=== PATIENT | male | born 1935 ===

== ENCOUNTER → 2018-07-29 | Outpatient (CLI) | payer MEDICARE | END | disposition home or self-care (01) | LOC: LAB SHORT 19:38 → LAB 19:38 | DX: R21 Rash and other nonspecific skin eruption (principal); L40.0 Psoriasis vulgaris; L81.4 Other melanin hyperpigmentation; Z79.899 Other long term (current) drug therapy | CPT/HCPCS: 87070 ==

== ENCOUNTER 2021-09-11 17:41 | Inpatient (IN) | payer MEDICARE, OTHER ==
[~2021-09-11] VITALS: Ht 170.2 cm; Wt 78.5 kg
[2021-09-11 19:19] LABS: Hematocrit 25.6 % (37.0-53.0); Hemoglobin 8.6 g/dL (13.5-17.5); Mean Corpuscular HGB Conc 33.6 g/dL (31.5-36.5); Mean Corpuscular Volume 95 fL (80-100); Mean Platelet Volume 10.7 fL (9.1-12.4); Platelet Count 209 K/mm3 (150-400); RDW Coefficient Variation 13.9 % (11.7-14.2); RDW Standard Deviation 48.7 fL (35.1-46.3); Red Blood Cell Count 2.69 M/mm3 (4.30-5.90); White Blood Cell Count 13.12 K/mm3 (4.00-11.30)
--- NOTE | 2021-09-11 19:24 | NUR ---
PCU ADMIT DIRECT ADMIT FROM [facility], BROUGHT TO PCU-20 BY EMS VIA [facility] @ APPROX 1800. PT SLID OVER FROM RNEY TO PCU BED. PT A&O X4. EMS W/ REPORT OF PT HAVING EPISODE OF BIGEMINAL PVC's. EVENT STRIP PROVIDED BY EMS & PLACED ON CHART. PCU MONITOR APPLIED TO PT SHOWING SR, HR 70's. SPO2 > 92% ON 15L NRB UPON ARRIVAL. RR 30's. PT THEN W/ DESAT TO 84% ON NRB, TRANSITIONED TO BIPAP BY RT, SEE RT DOCUMENTATION FOR SETTINGS. MD VAZQUEZ & MD DE LA CRUZ NOTIFIED OF PT ARRIVAL TO UNIT W/ MD's PLACING ORDERS FOR ADMIT. SKILLED NURSING PROFESSIONAL NOTIFIED W/ SKILLED NURSING PROFESSIONAL REPORTING PLAN FOR PT DIALYSIS TOMORROW. REPORT GIVEN TO ACCEPTING COMPUTER REPAIRER RN ASSUMING CARE OF PT.
--- NOTE | 2021-09-11 19:30 | NUR ---
ASSUMPTION OF CARE REPORT GIVEN BY NESS ALLAN, PT ARRIVED TO UNIT PRIOR TO MY SHIFT AT APPX 1800. PT IS ON BIPAP AT THIS TIME AT 50% W/SATS > 90%. HR AND BP ARE WNL. NO COMPLAINTS OF CHEST PAIN/PRESSURE, NO S/S OF ACUTE RESP DISTRESS. PT IS AGITATED AT REQUIRING THE BIPAP MASK BUT IS BEING COMPLIANT WITH COMPLAINT. PT WAS EDUCATED ON THE IMPORTANCE OF THE MASK AT THIS TIME. NO IV FLUIDS INFUSING. PT HAS BEEN VOIDING TO THE URINAL PER REPORT.
[2021-09-11 19:42] LABS: Albumin, Blood 2.2 g/dL (3.4-5.0); Albumin/Globulin Ratio 0.5 (0.8-1.8); Bilirubin, Total 1.2 mg/dL (0.1-1.0); Bun/Creatinine Ratio 35.7 (12.0-20.0); Calcium, Blood 9.5 mg/dL (8.5-10.1); Creatinine, Blood 3.81 mg/dL (0.60-1.20); Globulin, Blood 4.4 g/dL (2.2-4.0); Total Protein, Blood 6.6 g/dL (6.4-8.2)
[2021-09-11] MEDS ORDERED: ALLO100 PO (19:46)
[2021-09-11] MEDS ORDERED: AMLO5 PO (19:46)
[2021-09-11] MEDS ORDERED: Acerola C500 MG PO (19:46)
[2021-09-11] MEDS ORDERED: ASPIR 8181 M1 PO (19:47)
[2021-09-11] MEDS ORDERED: CALC.25 PO (19:49)
[2021-09-11] MEDS ORDERED: CARV25 PO (19:49)
[2021-09-11] MEDS ORDERED: CLOBETASOL EMOL15 G1 TOP (19:51)
[2021-09-11] MEDS ORDERED: CATAPRES-TTS 11 EAC1 TOP (19:52)
[2021-09-11] MEDS ORDERED: CATAPRES0.2 M1 PO (19:53)
[2021-09-11] MEDS ORDERED: COSENTYX P150 MG/11 SQ (19:54)
[2021-09-11] MEDS ORDERED: FAMO10 PO (19:56)
[2021-09-11] MEDS ORDERED: FERSU300 PO (19:57)
[2021-09-11] MEDS ORDERED: HYDRA50 PO (20:07)
[2021-09-11] MEDS ORDERED: FLONASE ALLERG9.9 ML (20:07)
[2021-09-11] MEDS ORDERED: IPRATROPIUM BRO30 ML NS (20:08)
[2021-09-11] MEDS ORDERED: LANS15EC PO (20:09)
[2021-09-11] MEDS ORDERED: BETAGAN (20:11)
[2021-09-11] MEDS ORDERED: METO2.5 PO (20:12)
[2021-09-11] MEDS ORDERED: NAPR220 PO (20:13)
[2021-09-11] MEDS ORDERED: OMEP20ER PO (20:14)
[2021-09-11] MEDS ORDERED: MIRALAX119 G2 (20:20)
[2021-09-11] MEDS ORDERED: POTA10T PO (20:21)
[2021-09-11] MEDS ORDERED: TAMS.4ER PO (20:23)
[2021-09-11] MEDS ORDERED: Zocor20 MG PO (20:23)
[2021-09-11] MEDS ORDERED: ZINC15 PO (20:24)
[2021-09-11] MEDS ORDERED: VITAMIN B-1100 M1 PO (20:24)
[2021-09-11] MEDS ORDERED: TORSE20 PO (21:09)
[2021-09-11 21:40] LABS: Influenza A, PCR NEGATIVE (NEGATIVE); Influenza B, PCR NEGATIVE (NEGATIVE); Resp Syncytial Virus, PCR NEGATIVE (NEGATIVE); SARS-Cov-2 (COVID-19) PCR, MMC NEGATIVE (NEGATIVE)
[2021-09-12 04:26] LABS: Hematocrit 16.9 % (37.0-53.0); Hemoglobin 5.7 g/dL (13.5-17.5)
[2021-09-12 04:41] LABS: Albumin, Blood 2.1 g/dL (3.4-5.0); Anion Gap 16 mmol/L (6-16); Blood Urea Nitrogen 148 mg/dL (8-24); Bun/Creatinine Ratio 38.4 (12.0-20.0); CO2, Blood 27 mmol/L (21-32); Calcium, Blood 9.3 mg/dL (8.5-10.1); Chloride, Blood 96 mmol/L (98-108); Creatinine, Blood 3.85 mg/dL (0.60-1.20); Glomerular Filtration Rate 15 (60-); Glucose, Blood 118 mg/dL (70-99); Magnesium, Blood 2.9 mg/dL (1.6-2.4); Phosphorus, Blood 7.4 mg/dL (2.5-4.9); Potassium, Blood 2.9 mmol/L (3.5-5.5); Sodium, Blood 139 mmol/L (136-145)
--- NOTE | 2021-09-12 05:36 | NUR ---
SHIFT SUMMERY PT HAS INTERMITTENTLY BECAME AGITATED THROUGHOUT THE NIGHT. HE HAS REMOVED HIS CPAP MASK AND DESATURATED INTO THE 60S VERY QUICKLY. HE CAN TOLERATE THE NON REBREATHER FOR SHORT PERIODS BEFORE OXYGEN SATURATION BEGINS TO DROP. HE IS AND HAS BEEN ALERT AND ORIENTED THROUGHOUT THE NIGHT. HE IS CONTINENT OF URINE AND VOIDS IN THE URINAL. CRITICAL H&H CALLED TO MD, ORDERS GIVEN. BP REMAINS WNL DESPITE LAB FINDINGS. NO OBVIOUS SOURCE OF BLOOD LOSS AT THIS TIME. PLANS FOR POSSIBLE DIALYSIS TODAY. DR DE LA CRUZ FOLLOWING PATIENT. PT IS ON TELEMETRY. NO COMPLAINTS OF CHEST PAIN/DISCOMFORT THROUGHOUT THE NIGHT. PT ONLY HAD RESP DISTRESS WHEN HE REMOVED HIS MASK. EACH TIME, PT WAS ABLE TO RECOVER AFTER OXYGEN WAS PLACED W/IN APPX 3-5 MINUTES.
[2021-09-12 06:24] LABS: PCO2 Arterial 38.7 mmHg (35-45); PO2 Arterial 68.7 mmHg (80-100); pH Blood Arterial 7.47 (7.35-7.45)
--- NOTE | 2021-09-12 07:39 | NUR ---
ASSUMED CARE OF PT THIS AM PT. ALERT AND ORIENTED, REQUESTING BREAK FROM CPAP MASK, CURRENT SETTINGS OF CPAP OF 10, 50%. PT. PLACED ON NRB MASK AT 15L FOR BREAK AND ICE WATER. BECOMES SOB WITH CONVERSATION ON NRB MASK. PT. REPORTS PAIN "EVERYWHERE" THIS AM, VERY TENDER TO TOUCH. LS DIM WITH CRACKLES. IN BASES, OCCASIONAL DRY COUGH. ABLE TO MOVE ALL EXTREM BUT VERY WEAK. ASSISTED PT WITH URINAL THIS AM, CURRENTLY HAS 24HR URINE IN PROGRESS. SKIN FRAGILE, WITH BRUISES T/O. PT REFUSING REPOSITIONING THIS AM, WARM BLANKETS PROVIDED. INSTRUCTED ON USE OF CALL LIGHT, AND FAMILY TO BE CALLED PER PT. REQUEST. PLANS FOR DIALYSIS TODAY AT 9AM. PG IV TO SALVADOR, WITH 20G IV TO RFA WELL. FISTULA IN LEFT ARM. VSS THIS AM.
--- NOTE | 2021-09-12 08:00 | NUR ---
ATTEMPTED TO CALL PT DAUGHTER LESLY NUMBER FROM PT [phone]- UNABLE TO REACH HER AT THIS TIME.
--- NOTE | 2021-09-12 09:42 | NUR ---
PT TO DIALYSIS.
--- NOTE | 2021-09-12 09:53 | NUR ---
ABLE TO TALK TO DAUGHTER, AND UPDATED ON PT CONDITION.
--- NOTE | 2021-09-12 12:29 | NUR ---
PT BACK FROM DIALYSIS PT CONTINUES TO REFUSE TO BE REPOSITIONED DESPITE REMINDER OF SORE ON COCCYX. PT. STATES "I DONT CARE I DONT WANT TO MOVE". TYLENOL GIVEN FOR PAIN TO PT LEGS. PT REPORTS FEELING TIRED POST DIALYSIS. VSS AT THIS TIME, CONTINUE TO AWAIT BLOOD PRODUCTS.
--- NOTE | 2021-09-12 13:14 | NUR ---
PT SWITCHED TO OXYMIZER, REPORTS HE IS MUCH MORE COMFORTABLE. REMAINS ON 15L. PT DOES NOT TOLERATE THE CPAP VERY WELL. PT. VSS AT THIS TIME, BLOOD NOW INFUSING.
--- NOTE | 2021-09-12 18:17 | NUR ---
SHIFT SUMMARY PT. REMAINS ALERT AND ORIENTED. REMAINS ON 15L, CURRENTLY ON OXYMIZER AND TOLERATING WELL. PT CONTINUES TO REFUSE REPOSITIONING T/O, HOWEVER DID ALLOW THIS RN TO FLOAT HIS FEET ON A PILLOW. PT. REPORTS PAIN EVERYWHERE AND WAS GIVEN TYLENOL WITH SOME RELIEF. PT. HAS FISTULA TO LEFT ARM, ACCESSED FOR DIALYSIS TODAY. PG TO SALVADOR SALINE LOCKED AT THIS TIME. VOIDS USING URINAL, 24HR URINE IN PROGRESS. VSS AT THIS TIME. REPORT TO ONCOMING RN.
[2021-09-12 22:17] LABS: BASOPHILS ABSOLUTE AUTO 0.01 K/mm3 (0.00-0.23); BASOPHILS PERCENT AUTO 0 % (0-2); EOSINOPHILS ABSOLUTE AUTO 0.02 K/mm3 (0.00-0.68); EOSINOPHILS PERCENT AUTO 0 % (0-6); Hematocrit 26.4 % (37.0-53.0); Hemoglobin 9.1 g/dL (13.5-17.5); IMMATURE GRAN ABSOLUTE AUTO 0.27 K/mm3 (0.00-0.10); IMMATURE GRAN PERCENT AUTO 2 % (0-1); LYMPHOCYTES ABSOLUTE AUTO 0.54 K/mm3 (0.84-5.20); LYMPHOCYTES PERCENT AUTO 4 % (21-46); MONOCYTES ABSOLUTE AUTO 1.18 K/mm3 (0.16-1.47); MONOCYTES PERCENT AUTO 8 % (4-13); Mean Corpuscular HGB 31.4 pg (26.0-34.0); Mean Corpuscular HGB Conc 34.5 g/dL (31.5-36.5); Mean Corpuscular Volume 91 fL (80-100); Mean Platelet Volume 10.5 fL (9.1-12.4); NEUTROPHILS ABSOLUTE AUTO 12.24 K/mm3 (1.96-9.15); NEUTROPHILS PERCENT AUTO 86 % (41-73); Platelet Count 257 K/mm3 (150-400); RDW Coefficient Variation 15.8 % (11.7-14.2); RDW Standard Deviation 52.8 fL (35.1-46.3); White Blood Cell Count 14.26 K/mm3 (4.00-11.30)
--- NOTE | 2021-09-12 23:00 | NUR ---
PT HAS BEEN A&OX3 DURING SHIFT. PT HAS DENIES ANY CHEST PAIN. TACHYPNEA WITH ANY EXERTION. PT PLACED ON HIGH FLOW, HUMIDIFIED OXYGEN BY RT, TOLERATING. PT DECLINING TO BE PLACED ON MASK. PT ALLOWING ROLLING TO BE PLACED ON BEDPAN, HAD 2 SMALL, SOFT, GREEN/BROWN BM'S. DR. VAZQUEZ CALLED AND REQUEST BLOOD THINNER ORDER DUE TO DVT. RECEIVED ORDER FOR STATE CBC PRIOR TO RECEIVING ORDER FOR BLOOD THINNER. PLACED ORDERS FOR ELIQUIS FROM HOME AFTER CALLING DR. VAZQUEZ. RECEIVED RESULTS FOR CBC, INFORMED DR. VAZQUEZ OF RESULTS AND ORDER FOR ELIQUIS. STATES "THAT IS OKAY". PT ALLOWED SELF TO BE FLOATED ON PILLOWS. LIGHTS AND TV TURNED OFF TO ENCOURAGE SLEEPING. CALL LIGHT IN REACH.
[2021-09-13 04:54] LABS: Hematocrit 26.5 % (37.0-53.0); Hemoglobin 8.8 g/dL (13.5-17.5)
--- NOTE | 2021-09-13 04:54 | NUR ---
PT HAS HAD MULTIPLE, SMALL, GREEN BM'S DURING SHIFT. PT USING BEDPAN. VOIDING CLEAR, YELLOW URINE WITHOUT DIFFICULTY. PT FREQUENTLY ASKING FOR WATER, EDUCATION GIVEN ON FLUID RESTRICTION. PT BECOMING ANXIOUS. PRN ATIVAN GIVEN, SEE MAR. PT HAS BEEN RESTING COMFORTABLY WITH EYES CLOSED SINCE ATIVAN GIVEN. HR IS SINUS BIRGIT IN 50'S. PT USING EXCESSORY MUSCLES TO BREATH EVEN WHEN SLEEPING, O2 SATS IN MID 90'S. A.M. LABS DRAWN FROM POWER[facility]YDE, BRISK BLOOD RETURN RECEIVED. BLANKETS PROVIDED AT PT REQUEST.
[2021-09-13 05:10] LABS: Albumin, Blood 1.9 g/dL (3.4-5.0); Anion Gap 10 mmol/L (6-16); Blood Urea Nitrogen 109 mg/dL (8-24); Bun/Creatinine Ratio 34.8 (12.0-20.0); CO2, Blood 32 mmol/L (21-32); Calcium, Blood 8.9 mg/dL (8.5-10.1); Chloride, Blood 100 mmol/L (98-108); Creatinine, Blood 3.13 mg/dL (0.60-1.20); Glomerular Filtration Rate 19 (60-); Glucose, Blood 185 mg/dL (70-99); Magnesium, Blood 2.9 mg/dL (1.6-2.4); Sodium, Blood 142 mmol/L (136-145)
--- NOTE | 2021-09-13 05:40 | NUR ---
[facility] RESULTS CALLED TO DR. DE LA CRUZ.
[2021-09-13 07:10] LABS: HBSAG SCREEN Negative (Negative); HCV AB 0.2 (0.0-0.9); HEP A AB, IGM Negative (Negative); HEP B CORE AB, IGM Negative (Negative)
--- NOTE | 2021-09-13 10:01 | NUR ---
EXTENSIVE CONVERSATION WITH PATIENTS DAUGHTER YAMILET, INTERPRETED FOR FAMILY DUE TO PATIENT COMANCHE, UPDATED ON CONDITION PATIENT AND DAUGHTER. RE-EDUCATED AND REPEATED INFORMATION X3. PATIENT AND DAUGHTER DENIED MORE QUESTIONS AND STATED THEY UNDERSTOOD.
--- NOTE | 2021-09-13 14:05 | NUR ---
PATIENT INCREASED SOB AND COUGHING, DYAPHORETIC, RESULT FROM IZZY HSOPITAL ARE IN, REPORTED CONCERNS AND REPORT TO DR BOUCHER
--- NOTE | 2021-09-13 16:07 | NUR ---
PATIENT LESS SOB AND COUGHING, MEDICATED WITH BUMEX, HAS VOIDED 300 ML, PATIENT REPORTS BEING MORE COMFORTABLE, PATIENT TO HAVE DIALYSIS TODAY FOR ONLY 2 HOURS TO PULL FLUID OFF. CALL LIGHT WITH IN PEDRITO ACEVES
--- NOTE | 2021-09-13 17:15 | NUR ---
PATIENT ALERT AND MORE CONFUSED, MAKES NEEDS KNOWN BUT FORGETS WHY, DIALYSIS DONE TODAY DUE TO TACHYPNEA AND SOB, DIURETIC GIVEN, DIALYSIS STARTED, TESSLON PEARLS START. VERY [place], HARD TO CONSOLE. PATIENT REPORTED NON-COOPERATIVE WITH BIPAP, PATIENT EDUCATED ON THE NEED FOR CO2 LEVELS. PATIENT REPORTS HE WILL TRY THE BIPAP TONIGHT, LS CRACKLES IN BASES, EASILY EXERTED SWALLOWING FLUIDS, HIGH FLOW 75% AND 30L, SATS STAY 95 AND ABOVE, MELATONIN ORDERED FOR TONIGHT, WILL RELAY TO PM RN, PEDRITO
--- NOTE | 2021-09-13 17:39 | NUR ---
PATIENTS CONFUSION INCREASED, SATS DECREASED TO 70% ON HIGH FLOW, TACHYPNEA, BIPAP ON PATIENT SATS 95%, ABG BEING DRAWN NOW, DIALYSIS STILL GOING, BM DONE, WCTM
[2021-09-13 18:08] LABS: PCO2 Arterial 34.2 mmHg (35-45); PO2 Arterial 81.2 mmHg (80-100); pH Blood Arterial 7.59 (7.35-7.45)
--- NOTE | 2021-09-13 19:58 | NUR ---
pt on dialysis will follow up with family tomorrow.
--- NOTE | 2021-09-13 19:59 | NUR ---
ASSUMED PT CARE FROM BEAU ALLAN ON DAY SHIFT. PT DIALYSIS COMPLETED AT 1945 BY SHIELA CUTTING MACHINE OPERATOR. PT DROWSY, WAKES TO NOISE. NOW RESTING WITH EYES CLOSED. NOTED TO BE TACHYPNEIC, RESPIRATTIONS NOTED TO BE AT 36. O2 SATS AT 100% ON 60LPM ON HIGH FLOW, PT USING EXCESSORY MUSCLES WITH RESPIRATIONS. WILL CONTINUE TO MONITOR.
--- NOTE | 2021-09-13 21:00 | NUR ---
PT COMPLAINING "I FEEL TIRED". REPORTS SOB AND CHEST PAIN 01/26. PT REPORTS "IT HURTS EVERYWHERE" ON HIS CHEST AND "IT FEELS LIKE PAIN" WHEN I ASKED HIM TO DISCRIBE HOW IT FELT. NO CHANGES NOTED ON HIS TELEMETRY. REPORTS INCREASED PAIN WITH COUGHING. PT MEDICATED FOR PAIN AND COUGH. WILL CONTINUE TO MONITOR.
--- NOTE | 2021-09-13 21:34 | NUR ---
PT REPORTS "IT'S ALL GONE" ABOUT HIS PAIN IN HIS CHEST. [facility] RESPIRATORY THERAPEST DECREASES HIGH FLOW OXYGEN TO 30LPM AT 80% DUE TO O2 SATS BEING AT 100%. WILL MONITOR.
--- NOTE | 2021-09-14 04:01 | NUR ---
PT SLEEPING, AROUSES EASIY TO TOUCH. ICE CHIPS PROVIDED AT PT REQUEST. A.M. VITALS TAKEN. PT HR REMAINS IN 50-60'S. SATS REMAIN >92 PERCENT ON HIGH FLOW OXYGEN. DENIES NEEDING TO VOID AT THIS TIME. DENIES FURTHER NEES. CALL LIGHT IN REACH.
[2021-09-14 04:02] LABS: BASOPHILS ABSOLUTE AUTO 0.03 K/mm3 (0.00-0.23); BASOPHILS PERCENT AUTO 0 % (0-2); EOSINOPHILS ABSOLUTE AUTO 0.03 K/mm3 (0.00-0.68); EOSINOPHILS PERCENT AUTO 0 % (0-6); Hematocrit 27.7 % (37.0-53.0); Hemoglobin 9.2 g/dL (13.5-17.5); IMMATURE GRAN ABSOLUTE AUTO 0.59 K/mm3 (0.00-0.10); IMMATURE GRAN PERCENT AUTO 4 % (0-1); LYMPHOCYTES ABSOLUTE AUTO 0.68 K/mm3 (0.84-5.20); LYMPHOCYTES PERCENT AUTO 5 % (21-46); MONOCYTES ABSOLUTE AUTO 1.18 K/mm3 (0.16-1.47); MONOCYTES PERCENT AUTO 9 % (4-13); Mean Corpuscular HGB 31.3 pg (26.0-34.0); Mean Corpuscular HGB Conc 33.2 g/dL (31.5-36.5); Mean Corpuscular Volume 94 fL (80-100); Mean Platelet Volume 10.7 fL (9.1-12.4); NEUTROPHILS ABSOLUTE AUTO 11.41 K/mm3 (1.96-9.15); NEUTROPHILS PERCENT AUTO 82 % (41-73); Platelet Count 284 K/mm3 (150-400); RDW Coefficient Variation 15.9 % (11.7-14.2); RDW Standard Deviation 55.6 fL (35.1-46.3); Red Blood Cell Count 2.94 M/mm3 (4.30-5.90); White Blood Cell Count 13.92 K/mm3 (4.00-11.30)
[2021-09-14 04:18] LABS: Albumin, Blood 1.8 g/dL (3.4-5.0); Anion Gap 9 mmol/L (6-16); Blood Urea Nitrogen 92 mg/dL (8-24); Bun/Creatinine Ratio 28.9 (12.0-20.0); CO2, Blood 34 mmol/L (21-32); Calcium, Blood 9.3 mg/dL (8.5-10.1); Chloride, Blood 102 mmol/L (98-108); Creatinine, Blood 3.18 mg/dL (0.60-1.20); Glomerular Filtration Rate 18 (60-); Glucose, Blood 135 mg/dL (70-99); Magnesium, Blood 3.2 mg/dL (1.6-2.4); Phosphorus, Blood 5.9 mg/dL (2.5-4.9); Potassium, Blood 3.5 mmol/L (3.5-5.5); Sodium, Blood 145 mmol/L (136-145)
--- NOTE | 2021-09-14 05:50 | NUR ---
DR. DE LA CRUZ NOTIFIED OF A.M. LAB RESULTS.
--- NOTE | 2021-09-14 18:15 | NUR ---
SHIFT SUMMARY NO ACUTE CHANGES NOTED THROUGH THE DAY. PT REMAINS ON AIRVO @ 30 L, FIO2 55%. LUNG SOUND DIMINISHED IN THE BASES, SPO2 >92% AT REST, SPO2 WILL DECREASE WITH ACTIVITY BUT PT WILL RECOVER QUICKLY. PT WILL GET ANXIOUS AT TIMES, HE HAS BEEN COOPERATIVE WITH CARE TODAY AND HAS NOT REQUIRED ANY ATIVAN. HE DID MENTION GETTING UPSET WITH FAMILY, THEY WERE "ARGUING OVER BRINGING HIM PERSONAL ITEMS". PT RECIEVED A BED BATH TODAY & DID GET UP TO THE BS FOR A BM. PT IS ATTEMPTING TO BE COMPLIANT WITH THE FLUID RESCTRICTION BUT HE DOES NOT HAVE AN APPETITE, HE LIKES TO DRINK ENSURE FOR MEALS. THIS LEADS TO MORE FLUID CONSUMPTION. PT DID NOT HAVE DIALYSIS TODAY, LABS TO BE DRAWN IN THE AM. HE IS RESTING QUIETLY IN BED AT THIS TIME, CALL LIGHT IN REACH, [facility].
--- NOTE | 2021-09-14 20:11 | NUR ---
ASSUMED PT CARE FROM LISETTE ALLAN ON DAY SHIFT. PT SITTING UP IN BED WATCHING TV. PT MAKING JOKES THIS EVENING. BOOSTED IN BED AT PT REQUEST. PT ON HIGH FLOW O2 AT 30LPM AT 55%, O2 SATS AT 97%. DISCUSSED CHANGING SETTING WITH [facility]AT[facility] THERAPEST, O2 SATS DROPPING TO 90% WITH COUGHING, WILL CONTINUE AND MONITOR. CALL LIGHT IN REACH.
[2021-09-15 03:59] LABS: Hematocrit 28.9 % (37.0-53.0); Hemoglobin 9.5 g/dL (13.5-17.5)
[2021-09-15 04:13] LABS: Albumin, Blood 1.9 g/dL (3.4-5.0); Anion Gap 10 mmol/L (6-16); Blood Urea Nitrogen 128 mg/dL (8-24); Bun/Creatinine Ratio 31.9 (12.0-20.0); CO2, Blood 33 mmol/L (21-32); Calcium, Blood 9.5 mg/dL (8.5-10.1); Chloride, Blood 100 mmol/L (98-108); Creatinine, Blood 4.01 mg/dL (0.60-1.20); Glomerular Filtration Rate 14 (60-); Glucose, Blood 131 mg/dL (70-99); Magnesium, Blood 3.2 mg/dL (1.6-2.4); Phosphorus, Blood 5.9 mg/dL (2.5-4.9); Potassium, Blood 3.2 mmol/L (3.5-5.5); Sodium, Blood 143 mmol/L (136-145)
--- NOTE | 2021-09-15 05:17 | NUR ---
DR. DE LA CRUZ CALLED AND INFORMED OF A.M. LABS. RECEIVED ORDER FOR PO POTASSIUM REPLACEMENT.
--- NOTE | 2021-09-15 05:28 | NUR ---
PT HAS SLEPT INTERMITENTLY THROUGHOUT NIGHT. ALLOWED SELF TO REPOSITIONED A FEW TIMES. TOLERATING HIGH FLOW OXYGEN WITH COMPLAINTS OF SUFFIENESS. MEDICATED FOR COUGH AND PAIN IN LEGS BILATERALLY. O2 SATS REMAINING IN MID 90'S. HIGH FLOW OXYGEN AT 30LPM AT 45% NOW AND TOLERAITNG WELL. EVENING DOSE OF HYDRALAZINE HELD DUE TO DBP BEING IN 30'S AND MAP LOW THROUGH YESTERDAY. PT BP TOLERATED WELL. HR SINUS RHYTHM IN THE 50-70'S DURING THE NIGHT.
--- NOTE | 2021-09-15 17:07 | NUR ---
SHIFT SUMMARY: PT A&Ox4, COOPERATIVE WITH CARE, USING CALL LIGHT APPROPRIATELY. PT CONTINUES ON HIFLO NC AT 30 L/MIN AND 40%, O2 SATS MAINTAINED >92%. SINUS ARRHYTHMIA PER SUPERVISOR PUTTY AND CALUKING WITH RATE 50s-60s, PT DENIES CP T/OUT DAY. PT TO/FROM DIALYSIS, TOLERATES WELL, SOME HYPOTENSION NOTED, 1600 ML OFF TODAY. PT MEDICATED PER EMAR FOR C/O UPSET STOMACH, HEADACHE, COUGH. PT SBA TO BSC, O2 SATS DECLINE TO 85-88% RANGE, RECOVER QUICKLY UPON RETURN TO BED. PERICARE PROVIDED PRN W/BARRIER CREAM AND MEPILEX PLACED TO COCCYX. PT REPOSITIONED PER PROTOCOL AND TOLERATES WELL. AT THIS TIME, PT RESTING QUIETLY IN BED. WILL CONTINUE TO MONITOR AND TREAT ACCORDINGLY UNTIL CHANGE OF SHIFT.
--- NOTE | 2021-09-15 23:08 | NUR ---
ASSUMED PT CARE FROM MARIO ALLAN ON DAY SHIFT. PT HAS BEEN A&OX3 AT THIS TIME. PT HAS BEEN COMPLAINT WITH FLUID RESTRICTION. PT REMOVED FROM AIRVO BY RESPIRATORY THERAPY AND PLACED ON HIGH FLOW NC AT 5LPM. PT TOLERATING WELL. EVENING HYDRALAZINE HELD DUE TO LOW BP'S. BP'S NOW STABEL AT 120/43, WILL CONTINUE TO MONITOR. PT RESTING IN BED WITH EYES CLOSED.
[2021-09-16 03:31] LABS: Hematocrit 30.4 % (37.0-53.0); Hemoglobin 9.8 g/dL (13.5-17.5); Mean Corpuscular HGB 30.9 pg (26.0-34.0); Mean Corpuscular HGB Conc 32.2 g/dL (31.5-36.5); Mean Corpuscular Volume 96 fL (80-100); Mean Platelet Volume 10.4 fL (9.1-12.4); Platelet Count 360 K/mm3 (150-400); RDW Coefficient Variation 15.7 % (11.7-14.2); RDW Standard Deviation 56.5 fL (35.1-46.3); Red Blood Cell Count 3.17 M/mm3 (4.30-5.90); White Blood Cell Count 18.42 K/mm3 (4.00-11.30)
[2021-09-16 03:49] LABS: Albumin, Blood 1.9 g/dL (3.4-5.0); Albumin/Globulin Ratio 0.4 (0.8-1.8); Bilirubin, Total 0.6 mg/dL (0.1-1.0); Bun/Creatinine Ratio 25.9 (12.0-20.0); Calcium, Blood 9.1 mg/dL (8.5-10.1); Creatinine, Blood 3.59 mg/dL (0.60-1.20); Globulin, Blood 4.6 g/dL (2.2-4.0); Magnesium, Blood 2.9 mg/dL (1.6-2.4); Phosphorus, Blood 5.9 mg/dL (2.5-4.9); Potassium, Blood 3.5 mmol/L (3.5-5.5); Total Protein, Blood 6.5 g/dL (6.4-8.2)
--- NOTE | 2021-09-16 05:49 | NUR ---
DR. DE LA CRUZ CALLED AND INFORMED OF A.M. LABS RESULTS.
--- NOTE | 2021-09-16 05:54 | NUR ---
PT SLEEPING INTERMITENTLY THROUGHOUT THE NIGHT. ABLE TO MAINTAIN O2 SATS >92% ON 5LPM HIGH FLOW NC. MEDICATED FOR HEADACHE WITH TYLENOL X 2. MEDICATED FOR COUGH X 1. MAINTAINING FLUID RESTRICTIONS RELUCTANTLY. ALLOWED REPOSITIONING X 1 ONTO PILLOWS, HEELS FLOATING ON PILLOW. BP HAS REMAINED STABLE WITH MAP >60.
--- NOTE | 2021-09-16 07:30 | NUR ---
ASSUMED CARE OF PATIENT AT 0700. PATIENT IS A&O X4. PATIENT REPORT THAT HE DID NOT HAD A GOOD NIGHT SLEEP LAST NIGHT. ON O2 HIGH FLOW 5L VIA NC WITH SPO2 OF 97%. PATIENT DENIES SOB, NO CP/CHEST DISCOMFORT. PATIENT IS PLEASANT AND COOPERATIVE WITH CARE. USE CALL LIGHT APPRORIATELY. ELEVATED BOTH LEGS ON PILLOW FOR COMFORT. DR DE LA CRUZ CAME BY AND SPOKE WITH PATIENT THIS AM. BED IN LOW POSITION AND CALL LIGHT IN REACH.
--- NOTE | 2021-09-16 11:50 | NUR ---
PATIENT REPORT TESLON COUGH MEDICATION THAT HE RECEIVED THIS AM IS NOT WORKING AND ASK IF THERE IS ANY DIFFERENT KIND OF MEDICATION THAT WORKS. CALLED DR VALLES WITH [facility], ED'S PRESENT AND NOTIFIED WITH PATIENT COMPLAINED. PER DR VALLES THAT SHE WILL PUT A NEW ORDER IN THE COMPUTER.
--- NOTE | 2021-09-16 17:40 | NUR ---
SHIFT SUMMARY PATIENT HAS BEEN CONTINENT THROUGHOUT SHIFT. HELD SCHEDULED APRESOLINE THIS AM DUE TO PATIENT DIASTOLIC PRESSURE WAS IN 30'S. PATIENT SET-UP IN THE CHAIR FOR ABOUT 20 MINS THIS MORNING AND REQUESTED TO BE PUT IN BACK TO BED DUE TO DISCOMFORT. PATIENT IS 1 ASSIST WITH FWW TO GET OOB. PHYSICAL THERAPY WORK WITH PATIENT TODAY AND O2 DROP TO HIGH 80'S, BUT RECOVERED A COUPLE MINUTES LATER TO MID 90'S. PATIENT RECEIVED COUPLE DOSED OF PRN TYLENOL FOR HEADACHE. PATIENT USED CALL LIGHT APPROPRIATELY THROUGHOUT SHIFT. ON TELE AND HAS BEEN SR WITH HR RANGES IN 60-68 BPM. PATIENT STILL C/O OF COUGHS AND HAS BEEN RECEIVING TREATMENT PER EMAR. ON FR 1000 ML. CONSUMED FLUID 600 ML ON DAY SHIFT. CALL LIGHT IN REACH AND BED IN LOW POSITION.
[2021-09-17 04:29] LABS: Hematocrit 29.3 % (37.0-53.0); Hemoglobin 9.3 g/dL (13.5-17.5); Mean Corpuscular HGB 30.3 pg (26.0-34.0); Mean Corpuscular HGB Conc 31.7 g/dL (31.5-36.5); Mean Corpuscular Volume 95 fL (80-100); Mean Platelet Volume 10.4 fL (9.1-12.4); Platelet Count 349 K/mm3 (150-400); RDW Coefficient Variation 15.3 % (11.7-14.2); RDW Standard Deviation 53.7 fL (35.1-46.3); Red Blood Cell Count 3.07 M/mm3 (4.30-5.90); White Blood Cell Count 22.03 K/mm3 (4.00-11.30)
[2021-09-17 05:05] LABS: Percent Saturation 23.5 % (20.0-50.0)
[2021-09-17 05:18] LABS: Albumin, Blood 1.9 g/dL (3.4-5.0); Albumin/Globulin Ratio 0.4 (0.8-1.8); Bilirubin, Total 0.8 mg/dL (0.1-1.0); Calcium, Blood 9.2 mg/dL (8.5-10.1); Creatinine, Blood 3.93 mg/dL (0.60-1.20); Globulin, Blood 4.4 g/dL (2.2-4.0); Potassium, Blood 3.7 mmol/L (3.5-5.5); Total Protein, Blood 6.3 g/dL (6.4-8.2)
--- NOTE | 2021-09-17 07:16 | NUR ---
Sam awakened easily to vital signs being taken. Oriented to person, but confused to place and date/time. Reminded him of where he is, and he is re-oriented to hospital, and remembers the dialysis nurse Rickey from yesterday, and that he will be here again today.
--- NOTE | 2021-09-17 10:05 | NUR ---
Pt was taken to dialysis at this time.
--- NOTE | 2021-09-17 12:22 | NUR ---
medicated the patient for both headache, cough and heartburn at this time.
--- NOTE | 2021-09-17 13:17 | NUR ---
Pt returned to room PCU 20 following dialysis. Reported that his headache is gone. He is cheerful and also states that he is breathing much better. When he left for dialysis, he was requiring 10 l/min of oxygen and now his spo2 is 91% on 2 l/min of oxygen.
--- NOTE | 2021-09-17 16:43 | NUR ---
SUMMARY Pt was confused this morning initially just after waking, but quickly reoriented and was alert and oriented x 4 all day. He has had complaints of headache, resolved with Tylenol #3 and also had complaints of heartburn during dialysis, but this was resolved with Maalox. Dialysis today removed 1000cc fluid per report from [facility]. When he went to dialysis he was requiring 10 l/min of oxygen, lung sounds with crackles scattered throughout. AFter dialysis he needed 2-5 l/min of oxygen, except for this evening when the therapist was working with him and he became angry and anxious and flopped himself back onto the bed and his spo2 dropped to 77%. He recovered with increased oxygen flow, but was able to be back on 5 l/min after a few minutes of recovery. A chest x ray was done today after he returned from dialysis. He has been in a sinus rhythm, and blood pressures were reported low during dialysis; however, they have been WNL since he returned to PCU 20 this afternoon. This morning he was able to get up to the bedside commode for a bowel movement, however he did also then have hypoxemia but did not have anxiety nor did he acknowledge any perceived dyspnea at that time. He has been taking in some nutrition, and some liquids. No urine output today.
[2021-09-18 05:55] LABS: Hematocrit 28.3 % (37.0-53.0); Hemoglobin 8.8 g/dL (13.5-17.5); Mean Corpuscular HGB 30.4 pg (26.0-34.0); Mean Corpuscular HGB Conc 31.1 g/dL (31.5-36.5); Mean Corpuscular Volume 98 fL (80-100); Mean Platelet Volume 10.5 fL (9.1-12.4); Platelet Count 318 K/mm3 (150-400); RDW Standard Deviation 54.6 fL (35.1-46.3); Red Blood Cell Count 2.89 M/mm3 (4.30-5.90); White Blood Cell Count 17.85 K/mm3 (4.00-11.30)
[2021-09-18 06:15] LABS: Albumin, Blood 1.8 g/dL (3.4-5.0); Albumin/Globulin Ratio 0.4 (0.8-1.8); Bilirubin, Total 0.7 mg/dL (0.1-1.0); Bun/Creatinine Ratio 21.5 (12.0-20.0); Creatinine, Blood 3.26 mg/dL (0.60-1.20); Globulin, Blood 4.3 g/dL (2.2-4.0); Magnesium, Blood 2.8 mg/dL (1.6-2.4); Phosphorus, Blood 6.3 mg/dL (2.5-4.9); Potassium, Blood 3.8 mmol/L (3.5-5.5); Total Protein, Blood 6.1 g/dL (6.4-8.2)
--- NOTE | 2021-09-18 06:34 | NUR ---
NOC SHIFT SUMMARY PT SLEPT WELL. ORIENTED X4, NOTIFIED DR. REA OVERNIGHT OF PT MAP 50-60 WITH DIASTOLICS IN THE 30S. SYSTOLIC 100-110S. PT ASYMPTOMATIC. NO NEW ORDERS. OTHER VSS PER PT TREND. SR/SB ON TELEMETRY. ADEQUATE UOP. BED ALARM IN PLACE, CALL LIGHT WITHIN REACH. WILL CONTINUE TO MONITOR AND PASS ON TO DAY RN.
--- NOTE | 2021-09-18 12:56 | NUR ---
REASSESSMENT PT WORKED WITH PHYSICAL THERAPY THIS MORNING AND NOW GOT UP TO A CHAIR. HE REQUIRES AN INCREASE IN OXYGEN FROM 6L HIGH FLOW TO 10L WITH ACTIVITY. REMAINS SR, BP STABLE. CONFIRMED WITH DR. DE LA CRUZ THIS MORNING THAT HE WANTED PT TO RECIEVE BUMEX SINCE IT IS A NON-DIALYSIS DAY. ALSO GOT OK FROM DR. 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 PT HAS A POOR APPETITE. ENCOURAGED HIM TO DRINK THE ENSURE BUT HE BARELY SIPS IT. CARE MANAGEMENT CAME BY AND SAID PT SHOULD BE ABLE TO DC TO GROUP HOME TOMORROW AFTER DIALYSIS.
--- NOTE | 2021-09-18 17:05 | NUR ---
SHIFT SUMMARY PT HAS DONE WELL THROUGHOUT THE DAY GETTING UP TO THE CHAIR TWICE AND WITH HIS OXYGEN TITRATED DOWN TO 4L/NC. WHEN PT IS ASLEEP HIS SPO2 IS 100% ON 4L/NC, BUT WHEN HE WAKES UP AND STARTS MOVING HIS SPO2 DROPS TO THE LOW 90S. HIS LUNGS ARE CLEAR, BUT DIM. SB IN THE UPPER 50S FOR MOST OF THE DAY. STILL POOR APPETITE. PT TRIES TO ADHERE TO FLUID RESTRICTION BUT IS UNHAPPY ABOUT IT. CARE MANAGEMENT CAME BACK AND PLAN NOW IS FOR DC TO SNF ON WEDNESDAY, PT AWARE. CONTINUING TO MONITOR.
[2021-09-19 05:54] LABS: Hematocrit 28.7 % (37.0-53.0); Hemoglobin 9.1 g/dL (13.5-17.5)
[2021-09-19 06:09] LABS: Albumin, Blood 1.9 g/dL (3.4-5.0); Anion Gap 8 mmol/L (6-16); Blood Urea Nitrogen 82 mg/dL (8-24); CO2, Blood 33 mmol/L (21-32); Calcium, Blood 9.3 mg/dL (8.5-10.1); Chloride, Blood 100 mmol/L (98-108); Creatinine, Blood 3.57 mg/dL (0.60-1.20); Glomerular Filtration Rate 16 (60-); Glucose, Blood 112 mg/dL (70-99); Potassium, Blood 3.8 mmol/L (3.5-5.5); Sodium, Blood 141 mmol/L (136-145)
[2021-09-19 06:36] LABS: SARS-Cov-2 (COVID-19) PCR, MMC NEGATIVE (NEGATIVE)
--- NOTE | 2021-09-19 06:55 | NUR ---
NOC SHIFT SUMMARY PT SLEPT WELL OVERNIGHT. ORIENTED X4. SOME SHORT TERM MEMORY LOSS BUT EASILY REORIENTED. VSS PER PT TREND. COMPLAINTS OF BAZZI AND COUGH OVERNIGHT W/RELIEF W/ PRNS (SEE EMAR FOR DETAILS). SR/SB ON TELEMETRY. ADEQUATE UOP. WILL CONTINUE TO MONITOR AND PASS ON TO DAY RN
--- NOTE | 2021-09-19 09:51 | NUR ---
CARE ASSUMPTION THIS RN ASSUMED CARE AT 0700 FROM DARREL ALLAN. VSS. TELE SR/SB. PATIENT IS ALERT AND ORIENTED X4. PERRLA. NEURO INTACT. PATIENT REPROTS NO PAIN. PATIENT REPORTS NO CHEST PAIN/PRESSURE. STRONG RADIAL PULSES. SWELLING IN RIGHT LEG. FAINT PEDIS PULSES. SKIN HAS BRUSING SCATTERED THROUGHOUT, REDDNESS TO COCCYX AND MEPILEX AND Q2 REPOSITIONING. ABD IS SOFT NONTENDER AND ACTIVE. PATIENT REPORTS SHORTNESS OF BREATH WITH EXERTION. SEE SHIFT ASSESSMENT FOR FURTHER DETAILS.PATIENT ON RA AT THE START OF THIS RNS SHIFT. PHYSICAL THERAPY WENT IN TO WORK WITH THE PATIENT AND PATIENT SPO2 DROPPED TO 77 JUST FROM THE PATIENT SITTING AT THE SIDE OF THE BED. THIS RN WAS INFORMED AND WENT INTO THE ROOM AND PLACED THE PATIENT ON 9L NC. PATIENT RECOVERED OVER A MIN AND THIS RN TITRATED IT DOWN TO 4L. PATIENT SPO2 SATS >90%. PATIENT REMAINS IN 4L NC WHEN PATIENT WAS BROUGHT TO DIALYSIS. PATIENT TAKES MEDS WHOLE WITH WATER. PATIENT USES CALL LIGHT APPROPRIATELY. PATIENT IS CURRENTLY AT DIALYSIS.
--- NOTE | 2021-09-19 18:29 | NUR ---
SHIFT SUMMARY PATIENT NEURO REMAINS INTACT. PATIENT HAD DIALYSIS TODAY. PLAN IS FOR PATIENT TO BE DISCHARGED TOMORROW TO A [facility] IN [place]. PATIENT HAS HAD NO ACUTE CHANGES THIS SHIFT. VSS. PATIENT USES CALL LIGHT APPROPRIATELY. LEFT FISUTAL WITH BRUIT AND THRILL. BED IN LOWEST POSITION, AND CALL LIGHT WITHIN REACH. WILL CONINTUE TO MONITOR AND PROVIDE CARE UNTIL HAND OFF WITH NEXT SHIFT.
[2021-09-20 05:33] LABS: Hematocrit 28.5 % (37.0-53.0); Hemoglobin 8.9 g/dL (13.5-17.5); Mean Corpuscular HGB 30.7 pg (26.0-34.0); Mean Corpuscular HGB Conc 31.2 g/dL (31.5-36.5); Mean Corpuscular Volume 98 fL (80-100); Mean Platelet Volume 10.3 fL (9.1-12.4); Platelet Count 268 K/mm3 (150-400); RDW Coefficient Variation 14.6 % (11.7-14.2); RDW Standard Deviation 52.9 fL (35.1-46.3)
[2021-09-20 06:01] LABS: Albumin, Blood 1.9 g/dL (3.4-5.0); Albumin/Globulin Ratio 0.4 (0.8-1.8); Bilirubin, Total 0.6 mg/dL (0.1-1.0); Bun/Creatinine Ratio 20.1 (12.0-20.0); Creatinine, Blood 2.84 mg/dL (0.60-1.20); Globulin, Blood 4.3 g/dL (2.2-4.0); Magnesium, Blood 2.7 mg/dL (1.6-2.4); Phosphorus, Blood 5.4 mg/dL (2.5-4.9); Total Protein, Blood 6.2 g/dL (6.4-8.2)
--- NOTE | 2021-09-20 06:40 | NUR ---
NOC SHIFT SUMMARY PT SLEPT WELL OVERNIGHT. NO COMPLAINTS OF PAIN. SR/SB ON TELEMETRY. ORIENTED X4. PT BEGAN REQUIRING INCREASING AMOUNTS OF O2 THIS AM @15L AROUND 0600 WHILE BEING PREPARED TO TRANSFER TO MEDICAL FLOOR. DR. REA NOTIFIED. OTHER VSS, PT DENIES ANY CP/PRESSURE OR COMPLAINTS OF SOA. ORDER FOR CXR X1 RECEIVED AND BNP. WILL CONTINUE TO MONITOR
--- NOTE | 2021-09-20 12:11 | NUR ---
CARE ASSUMPTION THIS RN ASSUMED CARE FROM DARREL ALLAN AT 0700. AT SHIFT CHANGE PATIENT START TO DROP IN O2 SATS. THIS RN AND DARREL RN INTO ROOM. DARREL RN CALLED RESPIRATORY CARE. RESPIRATORY CARE INTO ROOM. PATIENT IS ON 15L NC SITTING AT 86%. SWITCHED OXYGEN TUBING AND PATIENT SPO2 INCREASED TO 90%. SPO2 INCREASED TO 98%. PATIENT TITRATED TO 9L NC. SPO2 REMAINS >90%. DURING THIS PATIENT STATED HE DID NOT FEEL SHORT OF BREATH OR BECOME SYMPTOMATIC. VSS. TELE SR/SB. NEURO IS INTACT, ALERT AND ORIENTED X4. PERRLA. LUNG SOUNDS LOWER BASES RALES AND UPPER SLIGHT WHEEZE. ABD SOFT NONTENDER AND ACTIVE. STRONG RADAIL AND FAINT PEDIS PULSES. NO CHEST PAIN REPORTED. NO PAIN. RIGHT LEG IS MORE SWOLLEN THAT RIGHT LEG, THAT IS WHERE THE DVT IS LOCATED. PATIENT WAS SUPPOSED TO DISCHARGE TO SNF FACILITY IN [place], BUT DUE TO OXYGEN DEMAND PATIENT WAS UNABLE TO GO TODAY. SKIN HAS BRUISING SCATTERED THROUGHOUT. MEPILEX PLACED IN COCCYX AND CREAM APPLIED. PATIENT REPOSITIONING EVERY 2 HOURS. SEE SHIFT ASSESSMENT FOR FURTHER DETAILS. PATIENT DID NOT EAT BREAKFAST OR LUNCH. PATIENT USES CALL LIGHT APPROPRIATELY. CALL LIGHT WITHIN REACH AND BED IN LOWEST POSITION. WILL CONTINUE TO MONITOR AND PROVIDE CARE.
--- NOTE | 2021-09-20 17:12 | NUR ---
SHIFT SUMMARY PATIENT NEURO REMAINS INTACT. VSS. PATIENT DESATS WITH EXERTION. PATIENT HAS BEEN ON 7L NC MOST OF THE DAY, EXPECT FOR WITH MOVEMENT THIS RN INCREASES IT TO 9L NC. PATIENT DESATS WITH REPOSITION, USING HIS URINAL AND EATING. PATIENT STATES HE ISN'T SHORT OF BREATH, BUT KNOWS HIS OXYGEN GOES DOWN WHEN IT BEEPS. PLAN IS TO HAVE DIALYSIS TOMORROW MORNING AT 0900. PATIENT AGREES TO THIS AND PLAN OF CARE. PATIENT DID STATE THAT IF HIS OXYGEN DEMANDS INCREASE AND THE NEXT STEP IS A BIPAP THAT HE WANTS TO GO ON THE BIPAP, PATIENT STATED " I GOTTA GET BACK TO MY DOG". PATIENT TAKES MEDICATIONS WITH WATER. FISUTAL HAS BRUIT AND THRILL. NO ACUTE CHANGES THIS SHIFT. REPOSITIONED Q2. BED IS IN LOWEST POSITION WITH CALL LIGHT WITHIN REACH AND BED ALARM ON. WILL CONTINUE TO MONITOR AND PROVIDE CARE UNTIL HAND OFF WITH NEXT SHIFT.
[2021-09-21 05:14] LABS: Hematocrit 27.5 % (37.0-53.0); Hemoglobin 9.1 g/dL (13.5-17.5)
[2021-09-21 05:46] LABS: Anion Gap 10 mmol/L (6-16); Blood Urea Nitrogen 74 mg/dL (8-24); Bun/Creatinine Ratio 24.2 (12.0-20.0); CO2, Blood 31 mmol/L (21-32); Calcium, Blood 9.6 mg/dL (8.5-10.1); Chloride, Blood 95 mmol/L (98-108); Creatinine, Blood 3.06 mg/dL (0.60-1.20); Glomerular Filtration Rate 19 (60-); Glucose, Blood 128 mg/dL (70-99); Magnesium, Blood 2.9 mg/dL (1.6-2.4); Phosphorus, Blood 7.1 mg/dL (2.5-4.9); Potassium, Blood 3.9 mmol/L (3.5-5.5); Sodium, Blood 136 mmol/L (136-145)
--- NOTE | 2021-09-21 06:26 | NUR ---
NOC SHIFT SUMMARY PT SLEPT WELL OVERNIGHT. NO COMPLAINTS OF PAIN. SR/SB ON TELEMETRY. ORIENTED X4. VSS PER PT TREND, REQUIRING 7-10L OVERNIGHT, DESATS EASILY WITH ANY MOVEMENT. ADEQUATE UOP. WILL CONTINUE TO MONITOR AND PASS ON TO DAY RN.
--- NOTE | 2021-09-21 10:27 | NUR ---
CARE ASSUMPTION THIS RN ASSUMED CARE AT 0700 FROM DARREL ALLAN. PATIENT VSS. SPO2 >90% ON 10L NC. THIS RN WENT IN AND TITRATED PATIENT DOWN TO 6L NC AND SPO2 REMAINED >90%. PATIENT IS ALERT AND ORIENTED X4. PERRLA. PATIENT REPROTS NO SHORTNESS OF BREATH. LUNG SOUNDS WITH FINE CRACKLES IN BASES. BOTTOM HAS REDDNESS. REPOSITIONING, AND MEPILEX IN PLACE. BRUSING SCATTERED THROUGHOUT. PATIENT REPROTS NO PAIN. PATIENT REPROTS NO CHEST PAIN. STRONG RADIAL PULSES. FAINT PEDIS PULSES. RIGHT LEG SWOLLEN COMAPRED TO LEFT LEG, RIGHT LEG HAS DVT IN IT AND BEING TREATED FOR IT. ABD SOFT NONTENDER ACTIVE. SEE SHIFT ASSESMENT FOR FURTHER DETAILS. PATIENT USING URINAL IN BED WITH PATIENT IMPLEMENTATION TECHNICIAN IN ROOM. PATIENT BEGAN DESATTING AND WAS HANGING AT 84%. THIS RN INCREASED OXYGEN TO 15L NC AND PATIENT INCREASED TO 86% AND WASN'T IMPROVING. THIS RN PLACED THE PATIENT ON A NON BREBREATHER AND SPO2 INCREASED TO 94% AT 15L. PATIENT LEFT ON NON REBREATHER FOR ABOUT 5 MINS BECAUSE WHEN THIS RN WENT TO TAKE IT OF DROPPED BACK TO 86%. AFTER THE 5 MINS OF NRB BEING ON AND THIS RN REMVOED PATIENT SPO2 >90% ON 15L. THIS RN TRIED TO TIRTATE IT DOWN BEFORE DIALYSIS BUT SPO2 DROPPED. PATIENT WENT TO DIALYSIS WITH 15L NC SPO2 AT 90%. PATIEN TO DIALYSIS AT 0900. WILL AWAIT FOR PATIENTS RETURN. WILL CONTINUE TO MONITOR AND PROVIDE CARE.
--- NOTE | 2021-09-21 13:24 | NUR ---
BACK FROM DIALYSIS PATIENT RETURNED BACK FROM DIALYSIS APPROX 1303. PATIENT VSS. SPO2 >90% ON 15L NC. THIS RN INFORMED CT THAT HE WAS BACK, SINCE EARLIER WHEN THEY CALLED HE WAS AT DIALYSIS. PATIENT USED THE URINAL AND WHILE USING THE URINA DESATTED TO 85, AND THEN WENT UP TO 88%. PATIENT DRANK SOME OF HIS STRAWBERRY ENSURE AND DESATTED TO 83%. PATIENT WAS NOT RECOVERING. THIS RN PLACED THE NON REBREATHER ON AT 15L AND PATIENT IMPROVED TO 96%. THIS RN TOOK THE NON REBREATHER OFF AND PATIEN SITING AT 88-90% ON 15L NC. INFORMED RESPIRATORY CARE. JOSEPH HAD 1200 FROM HEMODIALYSIS. CALL LIGHT WITHIN REACH AND BED IN LOWEST POSITION. WILL CONTINUE TO MONITOR AND PROVIDE CARE.
--- NOTE | 2021-09-21 17:52 | NUR ---
SHIFT SUMMARY PATIENT NEURO REMAINS INTACT. PATIENT HAS EPISODES OF DESATURATION WITH EXERTION. PATIENT HAD BED BATH THIS EVENING. PATIENT ATE JELLO AND A FRUIT CUP TODAY AND DRANK SOME OF HIS STRAWBERRY ENSURE. NO ACUTE CHANGES. SEE PERVIOUS NOTES. FISTUAL HAS BRUIT AND THRILL. BED IS IN LOWEST POSITION, BED ALARM ON, AND CALL LIGHT WITHIN REACH. WILL CONTINUE TO MONITOR AND PROVIDE CARE UNTIL HAND OFF WITH NEXT SHIFT.
[2021-09-22 05:08] LABS: BASOPHILS ABSOLUTE AUTO 0.02 K/mm3 (0.00-0.23); BASOPHILS PERCENT AUTO 0 % (0-2); EOSINOPHILS PERCENT AUTO 0 % (0-6); Hematocrit 28.3 % (37.0-53.0); IMMATURE GRAN ABSOLUTE AUTO 0.23 K/mm3 (0.00-0.10); IMMATURE GRAN PERCENT AUTO 2 % (0-1); LYMPHOCYTES ABSOLUTE AUTO 1.05 K/mm3 (0.84-5.20); LYMPHOCYTES PERCENT AUTO 7 % (21-46); MONOCYTES ABSOLUTE AUTO 0.52 K/mm3 (0.16-1.47); MONOCYTES PERCENT AUTO 3 % (4-13); Mean Corpuscular HGB 30.7 pg (26.0-34.0); Mean Corpuscular HGB Conc 31.8 g/dL (31.5-36.5); Mean Corpuscular Volume 97 fL (80-100); Mean Platelet Volume 10.7 fL (9.1-12.4); NEUTROPHILS ABSOLUTE AUTO 13.84 K/mm3 (1.96-9.15); NEUTROPHILS PERCENT AUTO 88 % (41-73); Platelet Count 261 K/mm3 (150-400); RDW Coefficient Variation 14.1 % (11.7-14.2); RDW Standard Deviation 50.4 fL (35.1-46.3); Red Blood Cell Count 2.93 M/mm3 (4.30-5.90); White Blood Cell Count 15.66 K/mm3 (4.00-11.30)
[2021-09-22 05:24] LABS: Albumin, Blood 2.2 g/dL (3.4-5.0); Albumin/Globulin Ratio 0.5 (0.8-1.8); Bilirubin, Total 0.5 mg/dL (0.1-1.0); Bun/Creatinine Ratio 24.5 (12.0-20.0); C-REACTIVE PROTEIN, EXT RANGE 10.3 mg/dL (0.000-0.300); Calcium, Blood 9.6 mg/dL (8.5-10.1); Creatinine, Blood 2.49 mg/dL (0.60-1.20); Globulin, Blood 4.3 g/dL (2.2-4.0); Magnesium, Blood 2.9 mg/dL (1.6-2.4); Phosphorus, Blood 5.9 mg/dL (2.5-4.9); Potassium, Blood 4.3 mmol/L (3.5-5.5); Total Protein, Blood 6.5 g/dL (6.4-8.2); Uric Acid, Blood 5.9 mg/dL (3.5-7.2)
--- NOTE | 2021-09-22 05:30 | NUR ---
SHIFT SUMMARY PT AOX4. PT INCREASE 02 DEMAND DURING MEDICATION PASS AND PERFORMING ADL'S. DESATS TO 70-80'S WHEN EXERTING EXTRA ENERGY. PT ALSO DESATS ON LOW 80'S DURING MED PASS, GOWN CHANGE, AND URINAL USE. CURRENTLY ON 15L HFNC. INTERMITTENTLY USE ON 15L NONREBREATHER WHEN O2 DEMAND INCREASES. PT 02 SATS IMPROVE WITH NON REBREATHER TO OVER 95%. AT REST (AWAKE) SATS AT LOW 90'S. WHEN ASLEEP SATS IS OVER 95%. HE IS ON BEDREST AT THIS TIME. PT ALSO C/O DIFFICULTY SWALLOWING PILLS. WILL REQUEST FOR SPEECH EVAL TODAY. VOIDED 325ML. CALL LIGHT WITHIN REACH. WILL CONTINUE TO MONITOR AND WILL PROVIDE REPORT TO ONCOMING NURSE.
--- NOTE | 2021-09-22 11:15 | NUR ---
Initial palliative care consult: Sam is an 86 year old gentleman who lives alone in his home in [place]. He has a history of CAD, CKD, a-fib, pneumonia, CHF, rheumatoid arthritis and s/p aortic valve replacement in 2015. He reports that he has been having an increasingly difficult time with SOB at home prior to going to the ER at the [facility]. He lives alone with his dog, a valderrama brea (Hunter) who is his world. He reports that if his dog he would be devastated. Sam has a dtr, Koki, who he recently reconnected with during this hospital stay. She lives on the [facility] as well and is currently watching his dog. Sam reports that they stopped speaking to each other when he had his open heart surgery in 2014 when he asked if she could help him when he was dischaerged from that hospital stay and she said that she could not. Sam also has a son in [place] who he has no contact with. Sam is troubled by his SOB and his dropping oxygen levels with activty. He asked this database report writer several times during the visit what his oxygen level was. He appears to be quite anxious of his O2 sats dropping too low. During my visit he was on 11 liter/min of O2 and nursing was attempting to wean his O2 requirements down. Sam reports that he wants to get better. He wants to continue dialysis and find out why he is having the difficultly with desaturations with activity. Discussed chronic progressive cardiac issues. He seems to appear to be in denial about his current health situation. He is awaiting a consult from Dr. Mortensen at this time. Will plan to meet with Sam again after his consult from Dr. Mortensen. Sam appears to be struggling to accept his recent decline in health and appears to have some unresolved family issues. Sam reports that his dtr likes to try to tell him what to do and he doesn't like that. Emotional support given. Will plan to follow up with him after his Dr. Mortensen consult.
--- NOTE | 2021-09-22 18:49 | NUR ---
Shift Summary Pt alert, oriented x3; nooksack; anxious at times. Pt resting in bed during shift, repositioned q2. Pt denies pain, chest pain, nasuea, dizziness, and numb/tingling. Pt sob at rest, started this am with 15l o2 via hfnc and using nrb for "rescue" when he desaturate; educated pt on deep breathing, pursed lipped breathing and energy/breathing conservation; removed nrb. Titrated pt down to 6-8l o2 via nc. Pt had episode this afternoon with resp distress, titrated back to 15l for short time and able to titrate back down. Tele sb-sr, bp soft this afternoon, notified Dr Mari, will continue to monitor. No other acute changes noted. Will continue to monitor unitl report given to oncoming rn.
[2021-09-23 05:47] LABS: Hematocrit 28.8 % (37.0-53.0); Hemoglobin 9.4 g/dL (13.5-17.5)
--- NOTE | 2021-09-23 06:10 | NUR ---
SHIFT SUMMARY ASSUMED CARE OF PT AROUND 1900. PT IS A/OX4. HEART SOUNDS BIRGIT. LUNG SOUNDS HAVE CRACKLES T/O. PT WAS TITRATED DOWN TO 4L WHILE SLEEPING BUT ONCE AWAKE AND TALKING, PT NEEDED 6-8L NC. PT USED URINAL T/O THE NIGHT. BUTTOM IS RED, MEPILEX APPLIED. PT TURNED Q4. PT HAD NO NEW COMPLAINTS EXPECT NOT KNOWING WHAT WAS GOING ON AND HOPES TO GO HOME TODAY.
[2021-09-23 06:19] LABS: Albumin, Blood 2.3 g/dL (3.4-5.0); Anion Gap 11 mmol/L (6-16); Blood Urea Nitrogen 88 mg/dL (8-24); Bun/Creatinine Ratio 29.4 (12.0-20.0); CO2, Blood 30 mmol/L (21-32); Calcium, Blood 9.6 mg/dL (8.5-10.1); Chloride, Blood 99 mmol/L (98-108); Creatinine, Blood 2.99 mg/dL (0.60-1.20); Glomerular Filtration Rate 20 (60-); Glucose, Blood 132 mg/dL (70-99); Magnesium, Blood 3.1 mg/dL (1.6-2.4); Potassium, Blood 4.3 mmol/L (3.5-5.5); Sodium, Blood 140 mmol/L (136-145)
--- NOTE | 2021-09-23 15:22 | NUR ---
SHIFT SUMMARY: CKD- DIALYSIS PATIENT IS A&OX4 BUT IS [place] AT TIMES. PATIENT IS BETWEEN 4-6L OF OXYGEN WITH NC WITH >90% OXYGEN SATS WHEN HE'S NOT EATING/DRINKING OR TALKING. PATIENT WILL MOVE HIS NC TO HIS MOUTH IF HIS OXYGEN SATS BECOME TOO LOW. DENIES CHEST PAIN BUT DOES HAVE DYSPNEA ON EXERTION. PATIENT REPORTS NOT BEING ABLE TO SWOLLOW PILLS ALL TOGETHER BECAUSE "THEY LIKE TO GET STUCK ON THE INSIDE OF MY THROAT. THAT IS ALSO WHY ITS HARD FOR ME TO EAT FOOD". SPEECH EVAL ORDER IS IN PLACE. PATIENT DID HAVE DIALYSIS TODAY WELL. CALLS APPROPRIATELY. CALL LIGHT WITHIN REACH. THE PLAN IS TO BE DISCHARGED TO [place] TOMORROW MORNING AT 9AM WITH TRANSPORT SET UP ALREADY FROM [facility].
--- NOTE | 2021-09-23 20:26 | NUR ---
CARE ASSUMPTION: PATIENT WATCHING TV WITH RT AT BEDSIDE. PATIENT DENIED NEED FOR BREATHING TX AT THIS TIME - O2 SAT >90% ON 5L NC WHEN TALKING AND >96% AT REST. MAP 59 PER PATIENT TREND, OTHER VS WNL. PATIENT IS LOOKING FORWARD TO GOING HOME TOMORROW THOUGH STATES "IT'S A BIG 'MIGHT.'" PATIENT REFUSED OFFERING OF YOGURT/PUDDING/APPLESAUCE FOR NOC MEDICATIONS STATING "NO, I CAN'T SWALLOW THAT" AND REQUESTED TO TAKE NOC MEDS WITH WATER. SPEECH EVAL SCHEDULED FOR AM. OFF-GOING RN STATED PLAN IS TO TRANSPORT TO [facility] IN [place] AT 0900 TOMORROW.
[2021-09-24 05:09] LABS: Hematocrit 26.4 % (37.0-53.0); Hemoglobin 8.5 g/dL (13.5-17.5)
[2021-09-24 05:27] LABS: Albumin, Blood 2.1 g/dL (3.4-5.0); Anion Gap 10 mmol/L (6-16); Blood Urea Nitrogen 63 mg/dL (8-24); Bun/Creatinine Ratio 26.4 (12.0-20.0); CO2, Blood 31 mmol/L (21-32); Calcium, Blood 8.6 mg/dL (8.5-10.1); Chloride, Blood 98 mmol/L (98-108); Creatinine, Blood 2.39 mg/dL (0.60-1.20); Glomerular Filtration Rate 26 (60-); Glucose, Blood 130 mg/dL (70-99); Magnesium, Blood 2.8 mg/dL (1.6-2.4); Phosphorus, Blood 6.2 mg/dL (2.5-4.9); Potassium, Blood 4.2 mmol/L (3.5-5.5); Sodium, Blood 139 mmol/L (136-145)
--- NOTE | 2021-09-24 06:27 | NUR ---
SHIFT SUMMARY: PATIENT STABLE T/O SHIFT ON 4L NC. SLEPT PERIODICALLY T/O THE NIGHT. LOOKING FORWARD TO GOING HOME TODAY. TRANSPORT PLANNED FOR 0900. NO ADVERSE EVENTS THIS SHIFT. CALL LIGHT IN REACH. WILL REPORT TO ONCOMING RN.
--- NOTE | 2021-09-24 08:00 | NUR ---
ASSUMED CARE OF PT AT 0700. SPEECH THERAPY IN TO SEE PT THIS AM, SEE NOTES. PT UNWILLING TO CONTINUE TO SPEECH THERAPY EVAL. PT STATES HE IS UPSET ABOUT THE RESULTS OF HIS SPEECH EVAL, HE IS NOW NPO. PT REFUSES TO STAY IN THE HOSPITAL TO HAVE FURTHER SPEECH THERAPY ASSESSMENT/TREATMENT. MD NOTIFIED BY SPEECH THERAPIST/CHARGE NURSE OF SITUATION AND PT IS TO DISCHARGE ANYWAYS TODAY.
[2021-09-24 08:40] LABS: Influenza A, PCR NEGATIVE (NEGATIVE); Influenza B, PCR NEGATIVE (NEGATIVE); Resp Syncytial Virus, PCR NEGATIVE (NEGATIVE); SARS-Cov-2 (COVID-19) PCR, MMC NEGATIVE (NEGATIVE)
--- NOTE | 2021-09-24 09:05 | NUR ---
PT DISCHARGED WITH MEDICAL TRANSPORT AT THIS TIME. ALL BELONGINGS SENT WITH PT. POWERGLIDE REMOVED, CATHETER INTACT AND SITE WNL. NO FURTHER DISCHARGE NEEDS AT THIS TIME.
[2021-09-24] MEDS ORDERED: IPRAT-ALBUT 0.5-3 ML INH (11:52)
[2021-09-24] MEDS ORDERED: OCEAN104 ML (11:53)
[2021-09-24] MEDS ORDERED: ELIQUIS5 M2 PO (11:59)
[2021-09-24] MEDS ORDERED: TIMO.5OPSO BOTHEYES (12:00)
[2021-09-26 06:09] LABS: (LD) FRACTION 1 21 % (17-32); (LD) FRACTION 2 41 % (25-40); (LD) FRACTION 3 18 % (17-27); (LD) FRACTION 4 7 % (5-13); (LD) FRACTION 5 13 % (4-20); LDH 422 IU/L (121-224)
== END 2021-09-24 09:10 | DRG 682 ==
LOC: PCU 17:41
PROVIDERS: Family Medicine; Internal Medicine; Internal Medicine Nephrology; ADMIT Internal Medicine
PROC: 30233N1 Transfusion of Nonautologous Red Blood Cells into Peripheral Vein, Percutaneous Approach (ICD-10-PCS; principal; 2021-09-12)
DX: N17.9 Acute kidney failure, unspecified (principal); J96.01 Acute respiratory failure with hypoxia; I50.33 Acute on chronic diastolic (congestive) heart failure; J81.0 Acute pulmonary edema; J15.6 Pneumonia due to other Gram-negative bacteria; I82.4Z1 Acute embolism and thrombosis of unspecified deep veins of right distal lower extremity; I13.2 Hypertensive heart and chronic kidney disease with heart failure and with stage 5 chronic kidney disease, or end stage renal disease; R65.10 Systemic inflammatory response syndrome (SIRS) of non-infectious origin without acute organ dysfunction; N18.6 End stage renal disease; N25.81 Secondary hyperparathyroidism of renal origin; Z20.822 Contact with and (suspected) exposure to COVID-19; Z66 Do not resuscitate; R13.10 Dysphagia, unspecified; E83.39 Other disorders of phosphorus metabolism; E87.6 Hypokalemia; M11.09 Hydroxyapatite deposition disease, multiple sites; L40.50 Arthropathic psoriasis, unspecified; I48.0 Paroxysmal atrial fibrillation; I25.10 Atherosclerotic heart disease of native coronary artery without angina pectoris; M06.9 Rheumatoid arthritis, unspecified; D63.1 Anemia in chronic kidney disease; Z95.2 Presence of prosthetic heart valve; Z98.1 Arthrodesis status; Z90.49 Acquired absence of other specified parts of digestive tract; Z98.890 Other specified postprocedural states; Z88.8 Allergy status to other drugs, medicaments and biological substances; Z95.1 Presence of aortocoronary bypass graft; Z87.891 Personal history of nicotine dependence; Z79.82 Long term (current) use of aspirin; Z79.899 Other long term (current) drug therapy
CPT/HCPCS: 0241U; 36415; 36430; 36600; 71045; 71250; 74176; 76770; 80053; 80069; 80074; 81050; 82728; 82803; 83540; 83550; 83615; 83625; 83735; 83880; 84100; 84145; 84156; 84550; 85014; 85018; 85025; 85027; 85520; 85651; 86140; 86317; 86850; 86870; 86900; 86901; 86902; 86905; 86922; 87040; 92610; 93306; 93975; 93990; 94640; 94660; 94664; 94760; 94761; 94762; 97110; 97116; 97161; 97530; A9270; C1751; J0456; J0696; J0881; J1940; J2060; J2405; J2930; J3480; J7040; J7050; P9016; U0004